=== PATIENT | female | born 1960 | race Caucasian/White ===

== ENCOUNTER 2020-08-25 09:42 | Day surgery (SDC) | payer BC ==
[2020-08-25] MEDS ORDERED: Acetaminophen 500 MG TAB ONE (11:22)
[2020-08-25] MEDS ORDERED: diphenhydrAMINE 50 MG/ML VIAL ONE (11:23)
== END 2020-08-25 14:40 | disposition home or self-care (01) ==
LOC: CSHSDC/OP 09:42
PROVIDERS: ATTEND Emergency Medicine
DX: U07.1 COVID-19 (principal); I10 Essential (primary) hypertension
CPT/HCPCS: J1200; J7050; M0243; Q0243